=== PATIENT | female | born 1965 | race Caucasian/White ===

== ENCOUNTER 2024-01-17 12:08 | Day surgery (SDC) | payer MEDICARE, OTHER ==
[~2024-01-17] VITALS: Ht 154.9 cm; Wt 81.8 kg
[~2024-01-17 12:08] MED LIST: CITALOPRAM HBR20 MG PO; EXCEDRIN MIGRA1 EAC2 PO; IBLOOD GLUCOSE TEST STRIP 1 EA TEST VI PRN; LACTATED RINGER'S 1,000 ML IV SCH; LIDOCAINE HCL 1% 5 ML SDV INJ ONE; LIDOCAINE HCL 4% 50 ML BTL TOP SCH; MELOXICAM15 MG PO; METRONIDAZOLE500 MG PO; NEURONTIN300 MG PO; NORCO 7.5-3251 EACH PO; ONDANSETRON HCL4 MG PO; PERCOCET 7.5-31 EACH PO; TOPAMAX25 MG PO; TRAZODONE HCL150 MG PO; VENTOLIN HFA18 GM INH; ZANTAC150 MG PO; ZOLOFT100 MG PO
[2024-01-17 12:21] VITALS: BP 158/81
[2024-01-17] MEDS ORDERED: OLMESARTAN MEDO20 MG PO (12:28)
[2024-01-17] MEDS ORDERED: TYLENOL325 M1 PO (12:29)
[2024-01-17] MEDS ORDERED: MIDAZOLAM HCL 5 MG/5 ML VIAL ONE (13:15)
[2024-01-17] MEDS ORDERED: fentaNYL citrate 100 MCG/2 ML VIAL ONE (13:15)
--- NOTE | 2024-01-17 14:08 | NUR ---
01/17/24 1408 Felicity Sena 1405-PATIENT ARRIVED TO PACU ON 2L NC RR EVEN. PATIENT LAYING LEFT LATERAL HOB ELEVATED. ABDOMEN SOFT. AROUSES TO VERBAL STIMULI REMAINS VERY DROWSY AND DOZES BACK TO SLEEP. IVF INFUSING
[2024-01-17 14:59] VITALS: BP 127/67
--- NOTE | 2024-01-17 16:49 | OR ---
[facility] [address] [place], [place] [address] Signed DATE OF OPERATION: 01/17/2024 SURGEON: Al Cortes MD PREOPERATIVE DIAGNOSES: 1. Persistent postprandial bloating and fullness. 2. Presumed history of proximal gastric ulceration five years ago ([place]). POSTOPERATIVE DIAGNOSES: 1. Relatively normal stomach, esophagus and duodenum, possible mild antral gastritis. 2. Questionable small right vocal cord nodule. (Superior aspect) PROCEDURE: Esophagogastroduodenoscopy with biopsy. ANESTHESIA: Intravenous sedation; fentanyl 100 mcg and Versed 4 mg. INDICATION: This 58-year-old white woman is a patient of Dr. Chance Krishnamurthy and was referred for upper endoscopy on the basis of bloating and fullness following meals. She has a history of gastric ulceration in the proximal stomach based on upper endoscopy performed five years ago, though I have not seen the report to verify this. She has no associated dysphagia. She is admitted to undergo upper endoscopy to better characterize her current symptoms. She understands the risk of bleeding, infection, and perforation. FINDINGS: Visualization of the vocal cords showed a rather persistent white plaque like nodule of the vocal cord on the right side anteriorly. It was not large and it was not impeding the airway in any way. It clearly was not biopsied. The esophagus, stomach and duodenum were generally normal, though there was mild proximal gastritis to a degree. There is certainly no sign of ulceration and CLOtest was negative. PROCEDURE IN DETAIL: The patient was brought to the endoscopy suite and placed in the lateral decubitus position after undergoing topical lidocaine hypopharyngeal anesthesia. She was given intravenous sedation to the point of slurred speech and nystagmus. A bite block was placed. An Olympus video upper endoscope was passed in the hypopharynx later noting the Electronically Signed By: AL CORTES MD 01/17/24 1649 PATIENT NAME: RENE CERDA OPERATIVE REPORT DATE OF : 69 REPORT #: [id number] PHYSICIAN: AL CORTES MD PCP: CHANCE KRISHNAMURTHY DO REPORT IS CONFIDENTIAL AND NOT TO BE RELEASED WITHOUT AUTHORIZATION [facility] [address] [place], [place] [address] Signed vocal cords anteriorly on the right to have a small whitish plaque, which did not seem to change with insufflation and manipulation. The scope was advanced to the esophagus where it was normal throughout its length. Scope was passed to the stomach which was insufflated with air. Rugal folds were normal. Distal stomach was reasonably normal though there was mild inflammatory change. The pylorus was normal. Scope was passed through into the duodenum, which was normal. Biopsies were taken of the 3rd portion of the duodenum and the bulbar portion to assess for celiac disease and inflammation. The scope was withdrawn and biopsies taken of the antrum for both MARCELLUS and pathologic testing. Retroflexed view was undertaken showing a good flap valve. No sign of hiatal hernia. The scope was withdrawn after biopsies taken of the distal esophagus. Further withdrawal showed no other abnormality. Reinspection of vocal cord showed persistence of a whitish plaque-like nodule anteriorly in the right vocal cord. There is no impediment to air flow within the airway. The scope was removed and the patient was taken to the recovery room in good condition. CONCLUDING DIAGNOSES: 1. Essentially normal. No findings to account for current symptoms of postprandial bloating or fullness. 2. Questionable small right anterior vocal cord nodule. PLAN: We will organize for a gallbladder ultrasound to assess for biliary disease and set up referral to Dr. Mario Asif, ENT for office evaluation of possible right vocal cord nodule. Al Cortes MD /MODL /[id number] cc: DO Mario Molina MD Copies: CHANCE KRISHNAMURTHY DO Electronically Signed By: AL CORTES MD 01/17/24 1649 PATIENT NAME: RENE CERDA OPERATIVE REPORT DATE OF : 69 REPORT #: [id number] PHYSICIAN: AL CORTES MD PCP: CHANCE KRISHNAMURTHY DO REPORT IS CONFIDENTIAL AND NOT TO BE RELEASED WITHOUT AUTHORIZATION [facility] [address] [place] [address] Signed MARIO ASIF MD ~ Electronically Signed By: AL CORTES MD 01/17/24 1649 PATIENT NAME: RENE CERDA OPERATIVE REPORT DATE OF : 69 REPORT #: [id number] PHYSICIAN: AL CORTES MD PCP: CHANCE KRISHNAMURTHY DO REPORT IS CONFIDENTIAL AND NOT TO BE RELEASED WITHOUT AUTHORIZATION
--- NOTE | 2024-01-19 15:52 | PATH ---
[facility] [address] [place], [place] [address] Signed SPECIMEN(S): A DUODENAL BIOPSY SPECIMEN(S): B DUODENAL BULB BIOPSY SPECIMEN(S): C ANTRUM BIOPSY SPECIMEN(S): D PROXIMAL STOMACH BIOPSY SPECIMEN(S): E DISTAL ESOPHAGEAL BIOPSY SPECIMEN SOURCE: A. DUODENAL BIOPSY B. DUODENAL BULB BIOPSY C. ANTRUM BIOPSY D. PROXIMAL STOMACH BIOPSY E. DISTAL ESOPHAGEAL BIOPSY CLINICAL HISTORY: Pre-: History of Kelly's esophagus, history of ulcer, abdominal pain; Post: Mild gastritis, no ulcer, questionable vocal cord nodule FINAL PATHOLOGIC DIAGNOSIS: A. Duodenal biopsy: - Benign duodenal mucosa, negative for specific diagnostic abnormalities. B. Duodenal bulb biopsy: - Benign duodenal mucosa, negative for specific diagnostic abnormalities. C. Antrum biopsy: - Benign gastric mucosa with focal slight chronic inflammation. - Negative for Helicobacter organisms on routine HE stain sections. D. Proximal stomach biopsy: - Benign gastric mucosa with focal slight chronic inflammation. - Negative for evidence of Helicobacter organisms on routine HE stain sections. E. Distal esophageal biopsy: - Esophageal mucosa, negative for increased epithelial eosinophils. - Scant glandular mucosa, negative for specialized intestinal metaplasia or dysplasia. JVR:[facility] MICROSCOPIC EXAMINATION: Histologic sections of all submitted blocks are examined by light microscopy. These findings, together with the gross examination, support the pathologic diagnosis. GROSS DESCRIPTION: PATIENT NAME: RENE CERDA PATHOLOGY DATE OF : 69 REPORT #: [id number] PHYSICIAN: ORESTES PATHOLOGY PCP: LAZARO KRISHNAMURTHY DO REPORT IS CONFIDENTIAL AND NOT TO BE RELEASED WITHOUT AUTHORIZATION [facility] [address] [place], [place] [address] Signed A. The specimen, labeled and designated "Mukul, duodenal biopsy," is received in formalin and consists of 2 pieces of epps-pink, soft tissue each of which measures 0.4 cm in greatest dimension and aggregate 0.6 x 0.4 x 0.2 cm. The specimen is filtered and submitted entirely in A1. B. The specimen, labeled and designated "Mukul, duodenal bulb biopsy," is received in formalin and consists of 2 pieces of epps-pink, soft tissue ranging from less than 0.1-0.6 cm in greatest dimension and aggregating 0.6 x 0.3 x 0.2 cm. The specimen is filtered and submitted entirely in B1. C. The specimen, labeled and designated "Mukul, antral biopsy," is received in formalin and consists of 3 pieces of epps, soft tissue ranging from less than 0.1-0.5 cm in greatest dimension and aggregating 0.5 x 0.3 x 0.2 cm. The specimen is filtered and submitted entirely in C1. D. The specimen, labeled and designated "Mukul, proximal stomach biopsy," is received in formalin and consists of 6 pieces of epps-pink, soft tissue ranging from less than 0.1-0.4 cm in greatest dimension and aggregating 0.6 x 0.3 x 0.1 cm. The specimen is filtered and submitted entirely in D1. Please note there is a possibility that many of the pieces will not survive processing due to their minute nature. E. The specimen, labeled and designated "Mukul, distal esophageal biopsy," is received in formalin and consists of 3 pieces of epps-white, soft tissue ranging from 0.1-0.3 cm in greatest dimension and aggregating 0.4 x 0.3 x 0.1 cm. The specimen is filtered and submitted entirely in E1. Please note: Diluted, green ink is applied to all tissue pieces prior to processing. AM (under the direct supervision of a pathologist) The Gross Description was prepared using a voice recognition system. The report was reviewed for accuracy; however, sound-alike word errors, addition and/or deletions may occur. If there is any question about this report, please contact Client Services. PERFORMING LABORATORY: Technical component was performed by [employer] [facility], [address] [place] [address] (CLIA# [id number]). Professional interpretation was performed by [facility] - [facility], [address] [place] [id number] (CLIA#: [id number]). PATIENT NAME: RENE CERDA PATHOLOGY DATE OF : 69 REPORT #: [id number] PHYSICIAN: ORESTES VENCES PCP: LAZARO KRISHNAMURTHY DO REPORT IS CONFIDENTIAL AND NOT TO BE RELEASED WITHOUT AUTHORIZATION [facility] [address] [place], [place] [address] Signed Diagnostician: Fran Emmanuel MD Pathologist Electronically Signed 01/19/2024 Copies: ~ PATIENT NAME: RENE CERDA PATHOLOGY DATE OF : 69 REPORT #: [id number] PHYSICIAN: ORESTES PATHOLOGY PCP: LAZARO KRISHNAMURTHY DO REPORT IS CONFIDENTIAL AND NOT TO BE RELEASED WITHOUT AUTHORIZATION
== END 2024-01-17 15:05 | disposition home or self-care (01) ==
LOC: OPS 12:08 → DS 12:09 → OPS 13:00 → DS 13:00 → OPS 15:05
PROVIDERS: ATTEND Surgery
PROC: 0DB68ZX Excision of Stomach, Via Natural or Artificial Opening Endoscopic, Diagnostic (ICD-10-PCS; 2024-01-17)
PROC: 0DB38ZX Excision of Lower Esophagus, Via Natural or Artificial Opening Endoscopic, Diagnostic (ICD-10-PCS; 2024-01-17)
PROC: 0DB98ZX Excision of Duodenum, Via Natural or Artificial Opening Endoscopic, Diagnostic (ICD-10-PCS; principal; 2024-01-17 13:00)
DX: K29.70 Gastritis, unspecified, without bleeding (principal); K22.70 Barrett's esophagus without dysplasia; J45.909 Unspecified asthma, uncomplicated; Z88.0 Allergy status to penicillin; Z88.5 Allergy status to narcotic agent; Z88.8 Allergy status to other drugs, medicaments and biological substances
CPT/HCPCS: 88305; 99153; G0500; J2250; J3010; J7121

== ENCOUNTER 2024-02-07 07:04 | Day surgery (SDC) | payer MEDICARE, OTHER ==
[2024-01-30 09:53] VITALS: BP 142/84
[2024-02-07] VITALS (14 sets, daily range): BP systolic 89–148; BP diastolic 51–89
[~2024-02-07] VITALS: Ht 154.9 cm; Wt 81.4 kg
[~2024-02-07 07:04] MED LIST changes: -LIDOCAINE HCL 4% 50 ML BTL TOP SCH; +OLMESARTAN MEDO20 MG PO; +TYLENOL325 M1 PO
--- NOTE | 2024-02-07 07:55 | NUR ---
PT C/O ARANA AND REQUESTING APAP 650MG. YING GARCIA SPOKEN WITH AND VERBAL ORDER RECEIVED FOR 1 X DOSE OF 650MG APAP. ENTERED ORDER. PHARMACY CALLED TO CONFIRM.
[2024-02-07] MEDS ORDERED: DEXAMETHASONE SOD PHOS 4 MG/ML VIAL ONE ×2 (08:00→09:13)
[2024-02-07] MEDS ORDERED: KETOROLAC TROMETHAMINE 30 MG/ML VIAL ONE (08:00)
[2024-02-07] MEDS ORDERED: ROCURONIUM BROMIDE 50 MG/5 ML SYR ONE (08:00)
[2024-02-07] MEDS ORDERED: METOCLOPRAMIDE HCL 10 MG/2 ML SDV ONE (08:00)
[2024-02-07] MEDS ORDERED: ondansetron HCL 4 MG/2 ML VIAL ONE (08:00)
[2024-02-07] MEDS ORDERED: MIDAZOLAM HCL 2 MG/2 ML VIAL ONE (08:00)
[2024-02-07] MEDS ORDERED: LACTATED RINGER'S 1,000 ML IV ONE (08:00)
[2024-02-07] MEDS ORDERED: fentaNYL citrate 100 MCG/2 ML VIAL ONE (08:00)
[2024-02-07] MEDS ORDERED: ACETAMINOPHEN 325 MG TAB PO ONE (08:00)
[2024-02-07] MEDS ORDERED: propofoL 200 MG/20 ML VIAL ONE (08:00)
[2024-02-07] MEDS ORDERED: SUGAMMADEX SODIUM 200 MG/2 ML ML ONE (08:00)
[2024-02-07] MEDS ORDERED: FAMOTIDINE 20 MG/ 2 ML VIAL ONE (08:00)
[2024-02-07] MEDS ORDERED: SUCCINYLCHOLINE IN 0.9% NACL 200 MG/10 ML SYRINGE ONE (08:00)
[2024-02-07] MEDS ORDERED: LIDOCAINE HCL 4% 5 ML AMP ONE (08:01)
[2024-02-07] MEDS ORDERED: METOCLOPRAMIDE HCL 10 MG/2 ML SDV IV PRN (08:45)
[2024-02-07] MEDS ORDERED: NALOXONE HCL 0.4 MG SYR IV PRN (08:45)
[2024-02-07] MEDS ORDERED: IBLOOD GLUCOSE TEST STRIP 1 EA TEST VI PRN (08:45)
[2024-02-07] MEDS ORDERED: fentaNYL citrate 50 MCG/ML SDV IV PRN (08:45)
[2024-02-07] MEDS ORDERED: droPERidol 5 MG/2 ML VIAL IV PRN (08:45)
[2024-02-07] MEDS ORDERED: ondansetron HCL 4 MG/2 ML VIAL IV PRN (08:45)
[2024-02-07] MEDS ORDERED: PROCHLORPERAZINE EDISYLATE 10 MG/2 ML VIAL IV PRN (08:45)
[2024-02-07] MEDS ORDERED: MEPERIDINE HCL 25 MG/1 ML VIAL IV PRN (08:45)
[2024-02-07] MEDS ORDERED: dexmedeTOMIDine HCl 200 MCG/2 ML VIAL ONE (09:03)
[2024-02-07] MEDS ORDERED: ePHEDrine sulfate 50 MG/ML AMP ONE (09:32)
[2024-02-07] MEDS ORDERED: VASOPRESSIN 20 UNITS/ML VIAL ONE (09:51)
[2024-02-07] MEDS ORDERED: ATROPINE SULFATE 1 MG/ML VIAL ONE (10:05)
[2024-02-07] MEDS ORDERED: PHENYLEPHRINE HCL 10 MG/ML VIAL ONE (10:05)
--- NOTE | 2024-02-07 10:45 | OR ---
[facility] [address] [place], [place] [address] Signed DATE OF OPERATION: 02/07/2024 SURGEON: Mario Asif MD PREOPERATIVE DIAGNOSIS: Right vocal cord lesion. POSTOPERATIVE DIAGNOSIS: Right vocal cord lesion. PROCEDURE: Direct laryngoscopy, excision of right vocal cord lesions. ANESTHESIA: General orotracheal, Khalif HE. PREOPERATIVE HISTORY: Veena is a 58-year-old lady, who was discovered to have a right vocal cord lesion by Dr. Awad during upper GI endoscopy several weeks ago. She has had some hoarseness. Exam in the office had shown a whitish exophytic lesion on the right mid vocal cord. She is a smoker. She is taken to the operating room for the above-mentioned procedures. OPERATIVE PROCEDURE AND FINDINGS: After informed consent, the patient was taken to the operating room, placed in the supine position where general orotracheal anesthesia was induced. The patient and procedure were verified. The patient was repositioned. The anterior commissure laryngoscope was used to visualize the hypopharynx and larynx. No abnormalities except for the right vocal cord. The midportion of the vocal cord measuring approximately a quarter of the length of the vocal cord, there was an exophytic frond-like whitish lesion, typical appearance of papilloma. This was not involving the undersurface of the cord, just on the superior surface, not involving the ventricle. The lesion was stripped clean, completely removed with cupped biopsy forceps. This lesion sent to pathology in formalin for permanent sections. The biopsy site had minimal bleeding, stopped after observation for several minutes. Larynx and pharynx suctioned clear of blood secretions. The scope was removed. The patient was awakened, extubated, transported to the recovery room in good condition. No complications. BLOOD LOSS: Minimal. Electronically Signed By: MARIO ASIF MD 02/07/24 1045 PATIENT NAME: ZAIDAVEENA OPERATIVE REPORT DATE OF : 69 REPORT #: [id number] PHYSICIAN: MARIO ASIF MD PCP: LAZARO KRISHNAMURTHY DO REPORT IS CONFIDENTIAL AND NOT TO BE RELEASED WITHOUT AUTHORIZATION [facility] [address] [place] [address] Signed SPECIMEN: To pathology. DRAINS: No drains. Mario Asif MD GC/HAYLEE /[id number] Copies: ~ Electronically Signed By: MARIO ASIF MD 02/07/24 1045 PATIENT NAME: VEENA CERDA OPERATIVE REPORT DATE OF : 69 REPORT #: [id number] PHYSICIAN: MARIO ASIF MD PCP: LAZARO KRISHNAMURTHY DO REPORT IS CONFIDENTIAL AND NOT TO BE RELEASED WITHOUT AUTHORIZATION
--- NOTE | 2024-02-07 13:55 | NUR ---
PT UP TO BEDSIDE COMMODE. PT ASKING WHY SHE IS SO TIRED. EXPLAINED SITUATION WITH PT. PT ABLE TO VOID. 1400-PT MOVES SELF BACK TO BED. SIDE RAILS UP. PT CONTNUES TO BE ON CORE LOADER. NO OTHER NEEDS AT THIS TIME. CALL LIGTH WITHIN REACH.
--- NOTE | 2024-02-07 14:50 | NUR ---
1145: PATIENT BACK IN DAY SURGERY ROOM FROM PACU. DENIES CHEST PAIN AT THIS TIME. CONTINUES TO BE ON 5 LEAD MONITOR. DROWSY, BUT ANSWERS QUESTIONS APPROPRIATELY. VS CHECKED. IV SITE WNL. FRIEND AT BEDSIDE. SCDs ON. CALL LIGHT WITHIN REACH. PATIENT WANTS TO SLEEP. ASSISTED TO HELP TURN ON LEFT SIDE. 1300: HOSPITALIST AT BEDSIDE CHECKING ON PATIENT. HOSPITALIST REQUESTS PATIENT STAY FOR OBSERVATION UNTIL 1745. PATIENT AWAKENED AND NOTIFIED OF PLAN. PATIENT AGREES. 1315: LUNCH ORDERED FOR PATIENT. 1345: PATIENT ASSISTED UP TO BSC. VOID WITHOUT DIFFICULTY. PATIENT BACK IN BED. FRIEND AT BEDSIDE. CALL LIGHT WITHIN REACH. 1400: PATIENT SLEEPING. VS CHECKED. PATIENT CONTINUES TO BE ON 5 LEAD MONITOR. PATIENT IN NORMAL SINUS RHYTHM. CALL LIGHT WITHIN REACH.
--- NOTE | 2024-02-07 15:20 | NUR ---
02/07/24 1520 Siri Carrasco 0930- PT PRESENTS TO PACU, SEMI SAAVEDRA POSITION, NON REACTIVE TO STIMULUS. PT HAS OPA IN PLACE, BREATHING EVEN AND NON LABORED, O2 AT 6L PER MASK. ABD SOFT, NON DISTENDED. LR INFUSING TO RH IV. ALL MONITORS IN PLACE. INITIAL BP IS IN THE 80'S, CONCRETE BATCH PLANT OPERATOR AL TO GET MEDICATION FOR BP. 0938- EPHREDA GIVEN PER AL HE FOR BP 82/52. 0940- REPEAT BP 80/51, NO RESPONSE TO EPHEDRA. 0942- PT MEDICATED WITH PHENYLEPHRINE PER AL HE. 0945- PT BP RESPONSIVE TO MEDICATION, WILL CONTINUE TO MONITOR. PT REMAINS NON REACTIVE TO ALL STIMULUS. 0953- REPEAT BP NOW 83/50. CONCRETE BATCH PLANT OPERATOR AL TO USE VASOPRESSIN. 0956- PT MEDICATED WITH 8 UNITS OF VASOPRESSIN AT THIS TIME. PT IS STARTING TO GRIMACE AND SWALLOW. 0958- BP RESPONSIVE TO MEDICATION, 126/71 BUT HEART RATE HAS NOW LOWERED. AL HE REPORTS NORMAL FINDING AT BEDSIDE, WILL CONTINUE TO MONITOR. 1000- PT WAKES SELF AND OPENS, OPA REMOVED AT THIS TIME, PT MOVED TO ROOM AIR. HEART RATE NOW IN THE 40'S, AL HE TO COME BACK TO CHECK ON PT IN A FEW MINUTES. BP 82/57 1002- BP 77/49, HEART RATE IN THE LOW 30'S. CALLED AL BACK TO BEDSIDE. CODE CART AT BEDSIDE, 5 LEAD MONITOR PLACED, O2 SATS DROPPING, PT CONTINUES TO BREATH ON OWN. O2 MASK PLACED AT 10L. LR RUNNING WIDE OPEN TO RH IV. DEFIB PADS PLACED ON PT, CARDIAC RHYTHM NOW JUNCTIONAL BRADYCARDIA. PT IS NON RESPONSIVE TO TACTILE STIMULUS, PALE, AND DIAPHORETIC. 1005- AL HE BACK TO BEDSIDE WITH ATROPINE, 1MG IV GIVEN PER AL HE. 1007- PT BECOMES TACHYCARDIC ON MONITOR, BP 162/104. PT WAKES TO STIMULUS. 10L O2 PER MASK REMAINS IN PLACE. PT REPORTS FEELING VERY TIRED. 1011- 2ND LITER LR COMPLETE, 3RD LITER STARTED AT THIS TIME. O2 TURNED DOWN TO 6L AT THIS TIME. CONTINUE TO MONITOR. PT DENIES PAIN. 1020- PT REPORTS SOME NAUSEA AT THIS TIME, DENIES PAIN. WILL MEDICATE PER ORDERS. 1027- PT MOVED TO ROOM AIR, ZOFRAN GIVEN. 1037- PT RESTING, WAKES TO LOUD VERBAL STIMULI. O2 SATS DROP TO 88%. PT WILL WAKE AND FOLLOW COMMANDS TO DEEP BREATH AND COUGH. SATS INCREASE TO LOW 90'S BUT BACK TO THE 80'S WITH REST. 3L PER NC PLACED. 1048- PT CONTINUES TO REST, NAUSEA HAS IMPROVED. CONTINUE TO MONIOTR. 3RD LITER LR COMPLETE. 4TH LITER STARTED AT TKO. 1053- PT REPORTS FEELING LIKE SOMETHING HEAVY IS ON HER CHEST, MORE ON THE RIGHT SIDE AND UNDER RIGHT ARM. JILLIAN BERUMEN WILL CONTACT AL HE AND DR ASIF FOR FURTHER ORDERS. WILL PERFORM EKG AT THIS TIME. AL HE PREFERS DR ASIF TO ORDER ANY LABS AT THIS TIME. TROPONIN ORDER OBTAINED FROM DR ASIF AND REQUEST TO CONSULT WITH HOSPITALIST. 1058- EKG PERFORMED. 1105- BLOOD DRAWN FOR CARDIAC ENZYMES. PT REPORTS THE HEAVINESS SEEMS TO HAVE SUBSIDED. 1115- CHEST XRAY PERFORMED, DR AMARO HOSPITALIST IN DEPARTMENT. PT HISTORY AND CURRENT SITUATION GIVEN TO DR AMARO. 1126- DR AMARO RECOMMENDS PT TO BE ADMITTED TO THE HOSPITAL FOR OBSERVATION. PT BECOMES TEARFUL DUE TO HER SON HAVING SURGERY TOMORROW AND SHE HAS TO BE THERE. PT SAYS SHE CAN NOT STAY. PLAN TO TAKE PT BACK TO DAY SURGERY, REPEAT TROPONIN IN 1 HOUR AND MONITOR POTENTIALLY UNTIL DAY SURGERY CLOSES AND DR AMARO WILL REASSESS. 1135- PT TAKEN BACK TO DAY SURGERY, UNDERCUTTER OPERATOR IN PLACE FROM PACU. LR CONTINUES TO INFUSE TKO TO RH IV. O2 AT 2L PER NC. PT ALERT BUT DROWSY AND CONTINUES TO REPORT SHE JUST WANTS TO SLEEP. EDUCATED PT ON TAKING CARE OF HERSELF AND GETTING PREVENTATIVE HEALTH CARE. REPORT TO LEIDY BERUMEN AT BEDSIDE, CARE OF PT TURNED OVER AT THIS TIME.
--- NOTE | 2024-02-07 15:36 | NUR ---
1500: PATIENT CONTINUES TO SLEEP. AWAKENS TO VOICE AND TOUCH. CONTINUES TO BE ON STATE PATROL OFFICER. DENIES PAIN. 1515: IV SALINE LOCKED. O2 TURNED OFF. PATIENT ON ROOM AIR. DROWSY. SLEEPING WHEN NOT DISTRUBED. CALL LIGHT WITHIN REACH.
--- NOTE | 2024-02-07 16:25 | NUR ---
1600-PT CONTINUES TO SLEEP. FRIEND AT BEDSIDE. VSS. NO OTHER NEEDS AT THIS TIME. CALL LIGHT WITHIN REACH.
--- NOTE | 2024-02-07 16:44 | NUR ---
1638-PT TRANSFERS SELF TO BED SIDE COMMODE. GAIT STEADY AND TOLERATED WELL. 1640-PT BACK TO BED. PT LAYING ON LEFT SIDE. NO OTHER NEEDS AT THIS TIME. CALL LIGHT WITHIN REACH.
--- NOTE | 2024-02-07 16:49 | NUR ---
PT BACK TO SLEEP. O2 SATS DECREASE TO 88%. ENCOURAGED PT TO TAKE DEEP BREATHS. O2 AT 2L VIA NC. O2 SATS LOW 90'S ON 2L.
--- NOTE | 2024-02-07 17:07 | NUR ---
PT AWAKE AND HOB INCREASED. O2 TITRATED OFF. O2 SATS IN THE MID 90'S ON RA. PT PT ENCOURAGED TO COUGH AND DEEP BREATH. CALL LIGHT WITHIN REACH.
--- NOTE | 2024-02-07 17:56 | NUR ---
1730-VSS. PT DENIES CHEST PAIN, SOB, DIZZINESS. PT SITTING ON BED READY TO GO. PT TALKS ABOUT SON IN ER AT [facility] AND HOW SHE IS HIS ONLY RIDE. 174-WENT OVER DISCHARGE INSTRUCTIONS. ALL QUESTIONS ANSWERED. EXPLAINED TO PT NO DRIVING FOR 24 HOURS. PT STATES FRIEND WILL BE DRIVING. FRIEND DOES NOT SPEAK ITALIAN. PT PREFERS TELL FRIEND THAT SHE WILL BE DRIVING PT THE REST OF THE DAY. 174-WHEELCHAIR RIDE GIVEN TO PT'S CAR. .
--- NOTE | 2024-02-09 18:42 | PATH ---
[facility] [address] [facility] [place], [place] [address] Signed SPECIMEN(S): A RIGHT VOCAL CORD LESION SPECIMEN SOURCE: A. 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 - Negative for evidence of malignancy on these sections. COMMENT: As part of [facility] Quality Improvement Program, this case was reviewed by another member of our pathology staff. JVR:ILENE:job MICROSCOPIC EXAMINATION: Histologic sections of all submitted blocks are examined by light microscopy. These findings, together with the gross examination, support the pathologic diagnosis. GROSS DESCRIPTION: The specimen, labeled and designated "Mukul, right vocal cord lesion," is received in formalin and consists of a fragment of white-epps soft tissue/mucosa (0.9 x 0.5 x 0.3 cm). The specimen is submitted entirely in cassette (A1). VB (under the direct supervision of a pathologist) The Gross Description was prepared using a voice recognition system. The report was reviewed for accuracy; however, sound-alike word errors, addition and/or deletions may occur. If there is any question about this report, please contact Client Services. PERFORMING LABORATORY: Technical component was performed by [facility], [address] [place] [id number] (CLIA# [id number]). Professional interpretation was performed by [facility] - [facility], [address] [place] [id number] (CLIA#: [id number]). Diagnostician: Fran Emmanuel MD PATIENT NAME: RENE CERDA PATHOLOGY DATE OF : 69 REPORT #: [id number] PHYSICIAN: ORESTES PATHOLOGY PCP: LAZARO KRISHNAMURTHY DO REPORT IS CONFIDENTIAL AND NOT TO BE RELEASED WITHOUT AUTHORIZATION [address] [place], [place] [address] Signed Pathologist Electronically Signed 02/09/2024 Copies: ~ PATIENT NAME: RENE CERDA PATHOLOGY DATE OF : 69 REPORT #: [id number] PHYSICIAN: ORESTES PATHOLOGY PCP: LAZARO KRISHNAMURTHY DO REPORT IS CONFIDENTIAL AND NOT TO BE RELEASED WITHOUT AUTHORIZATION
== END 2024-02-07 17:45 | disposition home or self-care (01) ==
LOC: DS 07:04 → OPS 07:04
PROVIDERS: ATTEND Otolaryngology
PROC: 0CBT8ZX Excision of Right Vocal Cord, Via Natural or Artificial Opening Endoscopic, Diagnostic (ICD-10-PCS; principal; 2024-02-07 09:00)
DX: D14.1 Benign neoplasm of larynx (principal); I10 Essential (primary) hypertension; J45.909 Unspecified asthma, uncomplicated; F17.200 Nicotine dependence, unspecified, uncomplicated; Z79.899 Other long term (current) drug therapy; Z88.0 Allergy status to penicillin; Z88.5 Allergy status to narcotic agent; Z88.8 Allergy status to other drugs, medicaments and biological substances
CPT/HCPCS: 00320; 36415; 71045; 76705; 84484; 88305; A9270; J0330; J0461; J1100; J1885; J2250; J2371; J2405; J2704; J2765; J3010; J3490; J7121

== ENCOUNTER 2024-11-06 08:24 | Day surgery (SDC) | payer MEDICARE, OTHER ==
[~2024-11-06] VITALS: Ht 154.9 cm; Wt 81.8 kg
[2024-11-06 08:46] VITALS: BP 140/77
[2024-11-06 09:15] LABS: BASOPHILS 1.2 % (0.1-1.2); BASOPHILS, ABSOLUTE 0.06 K/uL (0.01-0.08); EOSINOPHILS 3.1 % (0.7-5.8); EOSINOPHILS, ABSOLUTE 0.16 K/uL (0.04-0.36); HEMATOCRIT 44.4 % (34.1-44.9); HEMOGLOBIN 15.2 g/dL (11.2-15.7); LYMPHOCYTES 45.3 % (19.3-51.7); LYMPHOCYTES, ABSOLUTE 2.36 K/uL (1.18-3.74); MCH 29.7 PG (25.6-32.2); MCHC 34.2 g/dL (32.2-35.5); MCV 86.9 fL (79.4-94.8); MONOCYTES 9.6 % (4.7-12.5); NEUTROPHILS 40.2 % (34.0-71.1); PLATELET COUNT 318 K/uL (182-369); RBC 5.11 M/uL (3.93-5.22)
[2024-11-06 09:30] LABS: ALBUMIN 3.8 g/dL (3.4-5.0); ALBUMIN/GLOBULIN RATIO 1.03 (1.1-2.4); ANION GAP 13.9 (7-21); BILIRUBIN, TOTAL 0.7 mg/dL (0.2-1.0); BUN/CREATININE RATIO 14.58 (6.0-28.6); CALCIUM 9.6 mg/dL (8.5-10.1); CREATININE, SERUM 0.96 mg/dL (0.55-1.02); POTASSIUM 3.9 mmol/L (3.5-5.1); PROTEIN, TOTAL 7.5 g/dL (6.4-8.2)
[2024-11-06] MEDS ORDERED: fentaNYL citrate 100 MCG/2 ML VIAL ONE (10:15)
[2024-11-06] MEDS ORDERED: ondansetron HCL 4 MG/2 ML VIAL ONE (10:16)
[2024-11-06] MEDS ORDERED: DEXAMETHASONE SOD PHOS 4 MG/ML VIAL ONE (10:16)
[2024-11-06] MEDS ORDERED: LIDOCAINE HCL 4% 5 ML AMP ONE (10:16)
[2024-11-06] MEDS ORDERED: LIDOCAINE HCL 2% 5 ML SDV ONE (10:16)
[2024-11-06] MEDS ORDERED: propofoL 200 MG/20 ML VIAL ONE (10:16)
[2024-11-06] MEDS ORDERED: ACETAMINOPHEN 1,000 MG/100 ML VIAL ONE (10:25)
[2024-11-06] MEDS ORDERED: SUCCINYLCHOLINE IN 0.9% NACL 200 MG/10 ML SYRINGE ONE (10:29)
[2024-11-06] MEDS ORDERED: ROCURONIUM BROMIDE 50 MG/5 ML SYR ONE (10:29)
--- NOTE | 2024-11-06 11:05 | NUR ---
11/06/24 1105 Kandice Wong 1056 PT TO PACU AWAKE AND ALERT DENIES PAIN AND NAUSEA. PT PLACED DENTURES BACK IN HER MOUTH. PT ASKING FOR WATER SHE TOLERATES WELL.
--- NOTE | 2024-11-06 11:10 | NUR ---
PT ARRIVES TO DS FROM PACU VIA STRETCHER. PT IS A&O AND REPORTS NO PAIN OR NAUSEA AT THIS TIME. PT ASKING APPROPRIATE QUESTIONS. PT TOLERATING SMALL SIPS OF WATER WITHOUT DIFFICULTY SWALLOWING OR ONSET OF NAUSEA. JELLO PROVIDED, PT TOLERATING WELL. CALL LIGHT WITHIN REACH, FAMILY RETRIEVED FROM HALLWAY. PT REPORTS NO FURTHER QUESTIONS OR NEEDS AT THIS TIME. REPORT RECEIVED FROM ALYSA BERUMEN.
[2024-11-06 11:11] VITALS: BP 131/76
--- NOTE | 2024-11-06 11:34 | NUR ---
PT STATES NEED TO URINE VOID. PT SITS AT BEDSIDE AND STATES NO ONSET OF NAUSEA/DIZZINESS. PT STANDS AT BEDSIDE AND GAIT IS STEADY. THIS RN STANDBY ASSIST WITH PT TO RESTROOM FOR UNMEASURABLE URINE VOID. PT BACK TO ROOM AND RESTING IN BED AT THIS TIME. FAMILY AT BEDSIDE. CALL LIGHT WITHIN REACH.
--- NOTE | 2024-11-06 11:56 | OR ---
[facility] [address] [place], [place] [address] Signed DATE OF OPERATION: 11/06/2024 SURGEON: Mario Asif MD PREOPERATIVE DIAGNOSIS: Left vocal cord lesion. POSTOPERATIVE DIAGNOSIS: Left vocal cord lesion. PROCEDURE: Direct laryngoscopy, biopsy of left vocal cord lesion. ANESTHESIA: General orotracheal; GEOPHYSICAL SUPPORT SPECIALIST, Víctor. PREOPERATIVE HISTORY: Ms. Gilman is a -muxv-[id number] lady with a history of a right vocal cord lesion which was excised, benign pathology, either nine months ago. She has developed a left vocal cord lesion in the interim, some hoarseness, dysphagia, taken to the operating room for the above-mentioned procedures. OPERATIVE PROCEDURE AND FINDINGS: After informed consent, the patient was taken to the operating room, placed in supine position where general orotracheal anesthesia was induced. The patient and procedure were verified. The patient was repositioned. Anterior commissure laryngoscope placed into position. Vocal cords identified. Right vocal cord was clear. The left vocal cord midportion had a whitish, slightly exophytic lesion not involving the anterior commissure or the laryngeal ventricle or the undersurface of the cord. The left vocal cord lesion was essentially stripped with the left biting cups. Tissue sent to pathology in formalin. Minimal bleeding stopped afterwards. The patient was then awakened, extubated, transported to recovery room in good condition. COMPLICATIONS: None. BLOOD LOSS: Minimal. SPECIMEN: Electronically Signed By: MARIO ASIF MD 11/06/24 1156 PATIENT NAME: RENE GILMAN OPERATIVE REPORT DATE OF : 69 REPORT #: [id number] PHYSICIAN: MARIO ASIF MD PCP: LAZARO KRISHNAMURTHY DO REPORT IS CONFIDENTIAL AND NOT TO BE RELEASED WITHOUT AUTHORIZATION [address] [place], [place] [address] Signed To Pathology. DRAINS: None. Mario Asif MD /MODL /[id number] Copies: ~ Electronically Signed By: MARIO ASIF MD 11/06/24 1156 PATIENT NAME: RENE GILMAN OPERATIVE REPORT DATE OF : 69 REPORT #: [id number] PHYSICIAN: MARIO ASIF MD PCP: LAZARO KRISHNAMURTHY DO REPORT IS CONFIDENTIAL AND NOT TO BE RELEASED WITHOUT AUTHORIZATION
--- NOTE | 2024-11-06 12:10 | NUR ---
IN PT ROOM FOR VS AND ASSESSMENT. PT STATES SHE IS READY TO GO HOME. PT GETTING DRESSED, FAMILY IN ROOM, CALL LIGHT WITHIN REACH.
[2024-11-06 12:24] VITALS: BP 164/91
--- NOTE | 2024-11-06 12:25 | NUR ---
IN PT ROOM FOR DC EDUCATION AT THIS TIME. PT STATES VERBAL UNDERSTANDING AND NO FURTHER QUESTIONS OR NEEDS AT THIS TIME. IV DC'ED, WNL. PT OFF OF UNIT VIA WC TO PASSENGER SIDE OF VEHICLE. ALL BELONGINGS IN PT POSSESSION AT THIS TIME. PT STATES NO FURTHER NEEDS OR QUESTIONS.
--- NOTE | 2024-11-06 13:52 | EKG ---
[facility] [address] [facility] [place] [address] Signed Sinus rhythm with premature atrial complexes Otherwise normal ECG No previous ECGs available Confirmed by Andreea Pang MD () on 11/06/2024 1:52:43 PM Electronically Signed By: ANDREEA PANG MD 11/06/24 1352 PATIENT NAME: RENE CERDA Electrocardiogram DATE OF : 69 PHYSICIAN: ANDREEA PANG MD REPORT #: [id number] REPORT IS CONFIDENTIAL AND NOT TO BE RELEASED WITHOUT AUTHORIZATION
[2024-11-06] MEDS ORDERED: SEVOFLURANE 250 ML BTL INH ONE (15:36)
--- NOTE | 2024-11-08 08:06 | PATH ---
[facility] [address] [facility] [place], [place] [address] Signed SPECIMEN(S): A LEFT VOCAL CORD LESION SPECIMEN SOURCE: A. LEFT VOCAL CORD LESION CLINICAL HISTORY: Left vocal cord lesion FINAL PATHOLOGIC DIAGNOSIS: Vocal cord, left, biopsy: - Squamous mucosa with parakeratosis and acute inflammation, suggestive of vocal cord polyp in the appropriate clinical setting - Negative for dysplasia or malignancy BRP MICROSCOPIC EXAMINATION: Histologic sections of all submitted blocks are examined by light microscopy. These findings, together with the gross examination, support the pathologic diagnosis. GROSS DESCRIPTION: The specimen, labeled and designated "[place], left vocal cord lesion," is received in formalin and consists of two fragments of epps soft tissue (0.2-0.3 cm in greatest dimension). The specimen is submitted entirely in cassette (A1). VB (under the direct supervision of a pathologist) The Gross Description was prepared using a voice recognition system. The report was reviewed for accuracy; however, sound-alike word errors, addition and/or deletions may occur. If there is any question about this report, please contact Client Services. ADDITIONAL NOTES: Immunohistochemical and/or in situ hybridization studies if performed in this case included appropriate positive controls that reacted as expected. This test was developed and its performance characteristics determined by [facility]. It has not been cleared or approved by the U.S. Food and Drug Administration. The FDA has determined that such clearance or approval is not necessary. This test is used for clinical purposes. It should not be regarded as investigational or for research. [facility] is certified under the Clinical Laboratory Improvement PATIENT NAME: RENE CERDA PATHOLOGY DATE OF : 69 REPORT #: [id number] PHYSICIAN: ORESTES VENCES PCP: LAZARO KRISHNAMURTHY DO REPORT IS CONFIDENTIAL AND NOT TO BE RELEASED WITHOUT AUTHORIZATION [address] [place] [address] Signed Amendments of 1988 (CLIA) as qualified to perform high complexity clinical laboratory testing. PERFORMING LABORATORY: Technical component was performed by [facility], [address] [place] [id number] (CLIA# [id number]). Professional interpretation was performed by [facility], [address] [place] [id number] (CLIA#: [id number]). Diagnostician: Manish Kenny MD Pathologist Electronically Signed 11/08/2024 Copies: ~ PATIENT NAME: RENE CERDA PATHOLOGY DATE OF : 69 REPORT #: [id number] PHYSICIAN: ORESTES VENCES PCP: LAZARO KRISHNAMURTHY DO REPORT IS CONFIDENTIAL AND NOT TO BE RELEASED WITHOUT AUTHORIZATION
== END 2024-11-06 12:30 | disposition home or self-care (01) ==
LOC: DS 08:24 → OPS 08:24 → DS 09:30 → OPS 10:00
PROVIDERS: Nurse Anesthetist, Certified Registered; ATTEND Otolaryngology
PROC: 0CBV8ZX Excision of Left Vocal Cord, Via Natural or Artificial Opening Endoscopic, Diagnostic (ICD-10-PCS; principal; 2024-11-06 10:00)
DX: J38.3 Other diseases of vocal cords (principal); Z88.0 Allergy status to penicillin; Z88.5 Allergy status to narcotic agent; Z88.8 Allergy status to other drugs, medicaments and biological substances; Z79.899 Other long term (current) drug therapy
CPT/HCPCS: 00320; 36415; 80053; 85025; 88305; 93005; 93010; J0131; J0330; J1100; J2003; J2405; J2704; J3010; J3490